=== PATIENT | male | born 1940 | race Caucasian/White ===

== ENCOUNTER → 2016-07-07 | Outpatient (CLI) | payer MEDICARE, OTHER ==
[2014-11-29 14:00] VITALS: BP 111/64
[~2016-07-07] MED LIST: ASPI325T4 PO; ATOR10TA60 PO; CARV3.122 PO; CLOP75TA PO; CONTRAST GIVEN MC PRN; CYAN1TAB28 PO; EZET1TAB4 PO; GLIM2TAB2 PO; IOHEXOL 300 MG/ML 50 ML VIAL. IT ONE; ISOS20TA2 PO; LIDOCAINE 1% Multi-Dose 20 ML VIAL. ID ONE; METF-620 PO; OMEG1CAP6 PO; OMEP20CA9 PO; TAMS0.4C2 PO
--- NOTE | 2016-07-07 13:10 | KCIC ---
CERVICAL MYELOGRAM Indication: Neck pain bilateral upper extremity pain Fluoroscopy time: 1:59 minutes TECHNIQUE: After discussion of the procedure, indications, risks, benefits, and alternatives the patient provided written and oral consent for the procedure. With the patient in a prone position on the fluoroscopy table, the L4-L5 interspace was selected for puncture and the overlying skin was prepped and draped in sterile fashion. Local anesthesia was achieved with approximately 4 mL of buffered 1% lidocaine. Under intermittent fluoroscopic guidance, a 25-gauge Augie needle was advanced into the thecal space with return of clear CSF. Approximately 9 mL of Isovue 300 M contrast was administered into the thecal space under intermittent fluoroscopic observation. The needle was removed and pressure applied until hemostasis was achieved. The patient's head was lowered until contrast was visualized to reach the cervical level. The table was then brought back to baseline. The patient was sent to CT for scanning through the cervical spine. The patient tolerated the procedure well without immediate complication. Post myelographic images demonstrate contrast within the thecal sac. IMPRESSION: Technically successful fluoroscopy guided intrathecal injection of contrast, to be followed by CT myelogram of the cervical spine. Electronically signed by: Liban Reynolds MD (07/07/2016 1:07 PM)
--- NOTE | 2016-07-07 13:19 | KCIC ---
CT CERVICAL MYELOGRAM HISTORY: Neck pain. Multiple falls. TECHNIQUE: Multiple contiguous axial images were obtained through the cervical spine. Coronal and sagittal reformations were created. Images were obtained after intrathecal administration of iodinated contrast. Findings: Alignment and curvature are within normal limits. A supracondylar surgically normal lateral masses of C1. The odontoid is intact. Vertebral body heights are well-maintained. No perching of the facets. At C2-3 there is no spinal stenosis. At C3-4 there is a discussed by complex which narrows the ventral subarachnoid space but does not cause mass effect upon the cord. At C4-C5 there is a discussed by complex which nearly abuts the undersurface of the cord but does not cause mass effect upon it. At C5-C6 there is a discussed by complex which minimally impresses upon the ventral surface of the cord just to the left of midline. At C6-C7 there is no spinal stenosis. At C7-T1 there is no spinal stenosis. Soft tissues of the neck demonstrates bilateral carotid artery calcifications without evidence for high-grade stenosis. IMPRESSION: Mild degenerative disc disease of the cervical spine greatest at C5-C6 where a small disc osteophyte complex causes mild mass effect upon the ventral surface of the cord. Electronically signed by: Liban Reynolds MD (07/07/2016 1:15 PM)
== END | disposition home or self-care (01) ==
LOC: KCIC 10:03
PROVIDERS: ATTEND Family Medicine
DX: M54.12 Radiculopathy, cervical region (principal); M79.602 Pain in left arm; M79.601 Pain in right arm
CPT/HCPCS: 72126; 72240; Q9967

== ENCOUNTER → 2017-07-13 | Day surgery (SDC) | payer MEDICARE, OTHER ==
[~2017-07-13] MED LIST changes: -ASPI325T4 PO; -ATOR10TA60 PO; -CARV3.122 PO; -CLOP75TA PO; -CONTRAST GIVEN MC PRN; -CYAN1TAB28 PO; -EZET1TAB4 PO; -GLIM2TAB2 PO; -IOHEXOL 300 MG/ML 50 ML VIAL. IT ONE; -ISOS20TA2 PO; -LIDOCAINE 1% Multi-Dose 20 ML VIAL. ID ONE; +LIDOCAINE 1% PF 2 ML VIAL. ID; -METF-620 PO; +MORPHINE SULFATE 4 MG/ML DISP.SYRIN. IV; -OMEG1CAP6 PO; -OMEP20CA9 PO; +ONDANSETRON PF 4 MG/2 ML VIAL. IV; +PROCHLORPERAZINE 10 MG/2 ML VIAL. IV; +PROPOFOL 20 ML IV; -TAMS0.4C2 PO; +fentaNYL PF VIAL 100 MCG/2 ML VIAL IV
[2017-07-13] MEDS: IV RINGERS,LACTATED 1000ML 1,000 ML IV (08:16)
== END ==
LOC: ENDOS 07:51
DX: K22.2 Esophageal obstruction (principal); K22.70 Barrett's esophagus without dysplasia; K21.9 Gastro-esophageal reflux disease without esophagitis; I25.2 Old myocardial infarction; I25.10 Atherosclerotic heart disease of native coronary artery without angina pectoris; Z95.5 Presence of coronary angioplasty implant and graft; Z95.1 Presence of aortocoronary bypass graft; E78.00 Pure hypercholesterolemia, unspecified; E78.5 Hyperlipidemia, unspecified; Z98.890 Other specified postprocedural states; Z87.442 Personal history of urinary calculi; M19.90 Unspecified osteoarthritis, unspecified site; E11.9 Type 2 diabetes mellitus without complications; F32.9 Major depressive disorder, single episode, unspecified; Z87.891 Personal history of nicotine dependence; Z82.49 Family history of ischemic heart disease and other diseases of the circulatory system; Z95.0 Presence of cardiac pacemaker
CPT/HCPCS: 43239; 88305; J2704

== ENCOUNTER 2017-11-23 09:28 | Outpatient (CLI) | payer MEDICARE, OTHER ==
[~2017-11-23] VITALS: Ht 175.3 cm; Wt 74.4 kg
[2017-11-23] VITALS (8 sets, daily range): BP systolic 107–150; BP diastolic 61–79
[~2017-11-23 09:28] MED LIST changes: +ASPI325T8 PO; +ATOR10TA60 PO; +CARV3.122 PO; +CLOP75TA PO; +CYAN1TAB28 PO; +EZET1TAB30 PO; +FERR325T72 PO; +FOLI1TAB16 PO; +GLIM2TAB2 PO; +HYDR12.53 PO; +ISOS20TA2 PO; -LIDOCAINE 1% PF 2 ML VIAL. ID; +METF10007 PO; -MORPHINE SULFATE 4 MG/ML DISP.SYRIN. IV; +OMEG1CAP6 PO; +OMEP20CA9 PO; -ONDANSETRON PF 4 MG/2 ML VIAL. IV; -PROCHLORPERAZINE 10 MG/2 ML VIAL. IV; -PROPOFOL 20 ML IV; +TAMS0.4C2 PO; -fentaNYL PF VIAL 100 MCG/2 ML VIAL IV
[2017-11-23 09:53] LABS: HEMATOCRIT 41.6 % (39.0-53.0); HEMOGLOBIN 13.8 g/dL (13.0-17.5); RED BLOOD COUNT 4.8 x10^6/uL (4.30-5.70); RED CELL DISTRIBUTION WIDTH 17.9 % (11.5-14.5)
[2017-11-23] MEDS ORDERED: EMPA10TA PO (10:03)
[2017-11-23 10:09] LABS: PROTHROMBIN TIME PATIENT 12.7 SEC (11.7-14.0)
[2017-11-23 10:11] LABS: CALCIUM 9.8 mg/dL (8.5-10.1); CREATININE 1.2 mg/dL (0.7-1.3); GFR 58.7
[2017-11-23 10:16] LABS: POTASSIUM 5.2 mmol/L (3.5-5.1)
--- NOTE | 2017-11-23 11:03 | PDOC ---
MODERATE SEDATION ASSESSMENT RISKS/ALTERNATIVES Risks/Alternatives Risks and alternatives of this type of sedation and procedure discussed with: RISK/ALTERNATIVES: Patient H & P ON CHART H & P H & P on chart and reviewed for co-morbid conditions and appropriate labs. H&P ON CHART: Yes STATUS PREG STATUS ASSESSED: Yes MEDS/ALLERGIES REVIEWED Meds/Allergies Reviewed Medications and Allergies including time and route of recently administered narcotics and sedatives. MEDS/ALLERGIES REVIEWED: Yes ASA RATING ASA RATING: II AIRWAY ASSESSMENT Airway Assessment Airway patency, oral function limitations, presence of caps, crowns, dentures, partials, and ability to extend neck assessed. AIRWAY ASSESSMENT: Yes MALLAMPATI SCORE MALLAMPATI SCORE: II PRE-SEDATION ASSESSMENT PRE-SEDATION ASSESSMENT: Yes ROBYN FINLEY MD Nov 23, 2017 11:03
[2017-11-23] MEDS ORDERED: IODIXANOL 320 MG/ML 100 ML VIAL. ONE (11:39)
[2017-11-23] MEDS ORDERED: LIDOCAINE 1% PF 30 ML VIAL. ONE (11:39)
[2017-11-23] MEDS ORDERED: fentaNYL PF VIAL 100 MCG/2 ML VIAL ONE (11:50)
[2017-11-23] MEDS ORDERED: MIDAZOLAM HCL/PF 2 MG/2 ML VIAL. ONE (11:50)
[2017-11-23] MEDS ORDERED: LIDOCAINE 1% PF 30 ML VIAL. INJ ONE (12:30)
[2017-11-23] MEDS ORDERED: MIDAZOLAM HCL/PF 2 MG/2 ML VIAL. IV ONE (12:30)
[2017-11-23] MEDS ORDERED: IODIXANOL 320 MG/ML 100 ML VIAL. IART ONE (12:30)
[2017-11-23] MEDS ORDERED: fentaNYL PF VIAL 100 MCG/2 ML VIAL IV ONE (12:30)
--- NOTE | 2017-11-23 13:06 | CARD ---
MR#: [id number] Date of Study: 11/23/2017 Ordering Physician: RAJAN PATEL, Referring Physician: RAJAN PATEL Tech: RT Sima (R) APPROVED REPORT Technologist: Keren Humphrey RT (R) Nurse: Maggie Miranda R.N. Procedure(s) performed: Moderate sedation: 36 minutes HISTORY The patient is a 77 year-old male with a history of : previous AL, coronary artery disease, previous PCI (The PCI date was ), hypertension, previous CABG (The CABG date was ), dyslipidemia. INDICATION The indication(s) include : positive stress test, chest pain. CASE TECHNIQUE The patient was brought electively into the cardiac catheterization lab. A timeout was performed conf irming the patient's name, date of , procedure, and site of procedure. All necessary parties wer e wearing the appropriate personal protective equipment and radiation monitoring devices. After expla ining the risks and benefits of the procedure, informed consent was obtained.(See nursing notes for m edications administered). The right groin was sterilely prepped and draped. The right femoral groin w as infiltrated with 2% Lidocaine subcutaneous anesthesia. During this case, Fluoroscopy and low osmol ar contrast were used for imaging. A sheath was inserted into the right femoral artery without diffic ulty. Coronary angiography was performed using coronary diagnostic catheters. The left coronary syste m was accessed and visualized with a Diagnostic catheter. The right coronary system was accessed and visualized with a Diagnostic catheter. The left ventricle was accessed and visualized with a Diagnost ic catheter. The left internal mammary artery was accessed and visualized with a Diagnostic catheter. The saphenous vein graft was accessed and visualized with a Diagnostic catheter. The saphenous vein graft was accessed and visualized with a Diagnostic catheter. Left ventricular/Aortic Valve gradient assessed on pullback. Left ventriculogram was performed in LANGE projection. Pre-demployment femoral an giogram was performed . Closure device was deployed with a Angioseal without any complications. The p atient tolerated the procedure well and there were no complications associated with the procedure. Coronary Angiography The patient's coronary anatomy is right dominant. The left main coronary artery is a small size vessel with stenosis. There is a 100% stenosis in the m id segment. The left main bifurcates to the left anterior descending and circumflex. The left anterior descending artery is a medium size vessel with severe diffused disease. The LAD is 100% occluded distal to the DEJESUS garft There is a 100% stenosis in the ostial segment. The first diag onal branch is a small size vessel with severe diffused disease. The second diagonal branch is a smal l size vessel with moderate-severe diffused disease. The third diagonal branch is a small size vessel with severe diffused disease. The circumflex artery is a medium size vessel with severe diffused disease. There is a 100% stenosis in the ostial segment. diffuse disease of all the branches distal to the graft anastomosis The first obtuse marginal branch is a medium size vessel with severe diffused disease. The second obtuse margin al branch is a small size vessel with severe diffused disease. The right coronary artery is a large size vessel with severe diffused disease. There is a 100% stenos is in the mid segment. There is 80% stenosis of the RCA ostium The right posterior descending artery is a small size vessel with severe diffused disease. The right posterolateral branch is a small size vessel with severe diffused disease. The left internal mammary artery to the mid left anterior descending artery segment is patent . The s aphenous vein graft to the right posterior descending artery is patent severe diffuse disease of the PDA distal to the graft. The saphenous vein graft to the first obtuse marginal branch segment is rdz nt severe diffuse disease of the OM distal to the graft. Left Ventriculography The left ventricle is dilated in size with decreased contractility. The left ventricular ejection fra ction is estimated to be 30%. The left ventricular end diastolic pressure is 20 mmHg. There was no gr adient across the aortic valve upon pullback. Conclusion This pt has severe diffuse coronary artery disease of the [place] vessels and no significant disease o f the grafts. Pt has an ischemic cardiomyopathy and I would recommend medical treatment. The vessels are not good t argets for redosurgery or attempting intervention with stenting and the grafts are open. Recommendations Medical Therapy Signed by : Rajan Patel MD Electronically Approved : 11/23/2017 13:05:35
== END 2017-11-23 15:37 | disposition home or self-care (01) ==
LOC: CCL 09:28
PROVIDERS: ATTEND Internal Medicine Cardiovascular Disease
DX: I25.10 Atherosclerotic heart disease of native coronary artery without angina pectoris (principal); I25.2 Old myocardial infarction; I10 Essential (primary) hypertension; Z95.1 Presence of aortocoronary bypass graft; I25.5 Ischemic cardiomyopathy; Z88.5 Allergy status to narcotic agent; Z95.0 Presence of cardiac pacemaker; E78.00 Pure hypercholesterolemia, unspecified; Z90.49 Acquired absence of other specified parts of digestive tract; Z79.82 Long term (current) use of aspirin; Z79.899 Other long term (current) drug therapy
CPT/HCPCS: 36415; 80048; 85027; 85610; 93459; 99152; 99153; C1769; C1892; J1644; J2250; J3010; Q9967; C1771; G0269

== ENCOUNTER → 2018-08-31 | Outpatient (CLI) | payer MEDICARE, OTHER ==
[2017-11-23 14:25] VITALS: BP 107/61
[~2018-08-31] MED LIST changes: +CARV3.1210 PO; -CARV3.122 PO; +EMPA10TA PO; -HYDR12.53 PO; +HYDR12.575 PO; +OMEP20CA10 PO; -OMEP20CA9 PO
--- NOTE | 2018-08-31 10:11 | CARD ---
MR#: [id number] Date of Study: 08/31/2018 Ordering Physician: JEMMA KOHLER, Referring Physician: JEMMA KOHLER Tech: Katie Pereira RDCS APPROVED REPORT EXAM: Two-dimensional and M-mode echocardiogram with Doppler and color Doppler. Other Information Quality : AverageHR: 68bpm Rhythm : Pacemaker INDICATION CAD 2D DIMENSIONS RVDd3.2 (2.9-3.5cm)Left Atrium(2D)3.4 (1.6-4.0cm) IVSd1.4 (0.7-1.1cm)Aortic Root(2D)3.3 (2.0-3.7cm) LVDd4.1 (3.9-5.9cm)LVOT Diameter2.3 (1.8-2.4cm) PWd1.0 (0.7-1.1cm)LVDs2.8 (2.5-4.0cm) FS (%) 31.2 %SV43.7 ml LVEF(%)55.0 (>50%) M-Mode DIMENSIONS RVDd2.38 (2.1-3.2cm)IVSd1.16 (0.7-1.1cm) Aortic Root3.60 (2.2-3.7cm)LVDd5.31 (4.0-5.6cm) PWd1.16 (0.7-1.1cm)LVDs3.96 (2.0-3.8cm) LVEF(%)50 (>50%) Aortic Valve AoV Peak Alvarado.88.5cm/sAoV VTI17.0cm AO Peak GR.3.1mmHgLVOT Peak Alvarado.62.6cm/s AO Mean GR.2mmHgAVA (VMAX)2.85cm2 Mitral Valve MV E Xxurmyee69.4cm/sMV DECEL AZGB898an MV A Medrjvak19.2cm/sE/A Ratio0.6 Pulmonary Valve PV Peak Igksirki588.8cm/s Tricuspid Valve TR P. Kcudcini732sk/sRAP WRPEGULA1ppQf TR Peak Gr.94lnPmPZGL98acMc LEFT VENTRICLE The left ventricle is normal size. Proximal septal thickening is noted. Basal inferior wall hypokines is. The Ejection Fraction is 45-50%. Septal motion consistent with conduction abnormality. Transmitra l Doppler flow pattern is Grade I-abnormal relaxation pattern. RIGHT VENTRICLE The right ventricle is normal size. There is normal right ventricular wall thickness. The right ventr icular systolic function is normal. Pacer lead noted in RV/RA. ATRIA The left atrium size is normal. The right atrium size is normal. The interatrial septum is intact wit h no evidence for an atrial septal defect or patent foramen ovale as noted on 2-D or Doppler imaging. AORTIC VALVE The aortic valve is trileaflet. The aortic valve is mildly calcified. Doppler and Color Flow revealed no significant aortic regurgitation. There is no significant aortic valvular stenosis. MITRAL VALVE The mitral valve is normal in structure and function. There is no evidence of mitral valve prolapse. There is no mitral valve stenosis. Doppler and Color-flow revealed trace to mild mitral regurgitation . TRICUSPID VALVE The tricuspid valve is normal in structure and function. Doppler and Color Flow revealed trace tricus pid regurgitation. The PA pressure was estimated at 28 mmHg. There is no tricuspid valve prolapse or vegetation. There is no tricuspid valve stenosis. PULMONIC VALVE The pulmonary valve is normal in structure and function. Doppler and Color Flow revealed trace to mil d pulmonic valvular regurgitation. There is no pulmonic valvular stenosis. GREAT VESSELS The aortic root is normal in size. The ascending aorta is normal in size. The IVC is normal in size a nd collapses >50% with inspiration. PERICARDIAL EFFUSION There is no evidence of significant pericardial effusion. Critical Notification Critical Value: No <Conclusion> Basal inferior wall hypokinesis. The Ejection Fraction is 45-50%. Septal motion consistent with conduction abnormality. Transmitral Doppler flow pattern is Grade I-abnormal relaxation pattern. Pacer lead noted in RV/RA. Trace to mild mitral regurgitation. Trace tricuspid regurgitation. The PA pressure was estimated at 28 mmHg. There is no evidence of significant pericardial effusion. Signed by : Jemma Kohler, Electronically Approved : 08/31/2018 10:10:47
--- NOTE | 2018-09-04 12:09 | RAD ---
MR#: [id number] Date of Study: 08/31/2018 Ordering Physician: JEMMA PARKS, Referring Physician: Juan RUGGIERO: Bette Brush APPROVED REPORT Patient Location: OUT-PATIENT Laterality:Bilateral Indications Bruit Risk Factors Smoking Doppler Spectral Velocity Analysis Right Left pCCA 71/10 cm/spCCA 86/14 cm/s mCCA 86/10 cm/smCCA 77/12 cm/s dCCA 69/13 cm/sdCCA 73/14 cm/s ECA 56/6 cm/sECA 51/6 cm/s pICA 43/10 cm/spICA 33/10 cm/s Omar 44/12 cm/smICA 38/12 cm/s dICA 53/15 cm/sdICA 43/12 cm/s Vert. 26/6 cm/sVert. 27/7 cm/s ICA/CCA 0.62ICA/CCA 0.50 Findings Grayscale images of the bilateral cartilage vessels demonstrate mild diffuse plaque with intimal hype rplasia. No focal high-grade obstruction is noted. Spectral waveforms and color Doppler are within normal limits and overall suggestive of 0 to less thaddeus n 50% stenosis. Images are slightly limited due to a higher carotid bifurcation but otherwise no gross evidence of st enosis. Critical Notification Critical Value: No <Conclusion> No significant carotid occlusive disease. Signed by : Scooby Spangler, Electronically Approved : 09/04/2018 12:08:55
== END | disposition home or self-care (01) ==
LOC: US 07:51
PROVIDERS: ATTEND Internal Medicine Cardiovascular Disease
DX: I08.8 Other rheumatic multiple valve diseases (principal); I65.23 Occlusion and stenosis of bilateral carotid arteries; I25.10 Atherosclerotic heart disease of native coronary artery without angina pectoris; I25.5 Ischemic cardiomyopathy
CPT/HCPCS: 93306; 93880

== ENCOUNTER → 2019-02-08 | Outpatient (CLI) | payer MEDICARE ==
[2017-11-23 14:25] VITALS: BP 107/61
[~2019-02-08] MED LIST changes: -GLIM2TAB2 PO; +GLIM2TAB3 PO; +OMEP-229 PO; -OMEP20CA10 PO
--- NOTE | 2019-02-08 12:17 | PAIN ---
DATE OF SERVICE: 02/08/2019 INITIAL CONSULTATION FOR PAIN CLINIC CHIEF COMPLAINT: Low back and left lower extremity pain. HISTORY OF PRESENT ILLNESS: This is a 78-year-old male who presents with history of pain in the left foot, primarily in the arch of the foot and the lateral toes for about 3 months or more. The patient reports no specific injury or action to start the pain. He has had a history of lumbar disk protrusions in the past with an MRI scan that he has from 2013 showing left lateral recess stenosis at L3-L4, intervertebral disk with left neural foraminal and proximal left extraforaminal small extrusion, L5-S1 shows very shallow left paracentral mostly contained extrusion which is not resulting in significant impingement of descending S1 nerve roots, although disk osteophyte complex near the ventral surfaces without displacement, moderate narrowing distally of the right neural foramen and mild narrowing of the left neural foramen, and again that was 2013 MRI scan. The patient has had no further lumbar studies since that time. He did have an MRI scan of his left foot showing no definite findings to exclude the patient's lateral pain. No evidence of peroneal tendon tear, mild edema. The patient reports the pain is worse with standing, walking, changing positions, can act up when he is sitting, does not awaken him from sleep at night, but much worse with activity. The patient reports it does affect his ability to walk significantly, does not affect his bowel or bladder control. He has had physical therapy in the past, but nothing recently for this current issue. The patient does not take any specific pain medications for it except for jyac-hky-nkwrimu Tylenol. The patient describes the pain as intermittent in intensity, was stinging, sharp, can be burning as though someone was holding torch to the arch of his foot and the lateral toes. PAST MEDICAL HISTORY: Significant for type 2 diabetes, hyperlipidemia, coronary artery disease with pacemaker placement, arthritis, vertigo, history of polio in the past. PREVIOUS SURGERY: Includes coronary artery bypass x 9 in 1997 and 1983; appendectomy; right foot fracture. CURRENT MEDICATIONS: Include Jardiance, metformin, carvedilol, isosorbide, clopidogrel, atorvastatin, daily baby aspirin, fish oil, glimepiride, tamsulosin, omeprazole, iron, folic acid and hydrochlorothiazide. ALLERGIES: THE PATIENT IS ALLERGIC TO CODEINE. FAMILY HISTORY: Significant for diabetes and heart disease. SOCIAL HISTORY: The patient drinks alcohol maybe once a year, does not smoke, does not use any illegal, illicit or recreational drugs. Quit smoking about 40 years ago. He is single, lives locally in [place], [place] and is currently retired. REVIEW OF SYSTEMS: The patient's review of systems is positive for those items mentioned in history of present illness. All systems reviewed and otherwise negative. It is complete, full and well documented on the patient's chart. PHYSICAL EXAMINATION: VITAL SIGNS: The patient's blood pressure 135/78, pulse 65, respirations 16, temperature 98.4 degrees Fahrenheit, height is 5 feet 10 inches, weight is 169 pounds. GENERAL: The patient is awake, alert, oriented, appropriate, very pleasant demeanor. HEENT: Shows normocephalic, atraumatic. The patient wears eye glasses. Extraocular movements are intact and symmetrical. Oral cavity: Mucous membranes moist and pink. Dentition is intact. NECK: Shows anterior throat supple without palpable lymphadenopathy noted. Swallow reflex symmetrical. CHEST: Shows normal on inspection. Breath sounds are clear bilaterally. Easily palpable pacemaker is noted in the left infraclavicular region. HEART: Shows S1, S2 clear. No murmurs auscultated. ABDOMEN: Soft, nontender, nondistended. No palpable organomegaly is noted. No rebound or guarding demonstrated. BACK: Shows spine grossly in the midline. Normal appearing cervical lordotic curvature, thoracic kyphotic curvature and lumbar lordotic curvature. Lumbar paraspinous muscle shows symmetrical on inspection, with palpation shows some moderate tenderness diffusely bilaterally and diffusely without radiation throughout the upper, middle and lower distribution of paraspinous muscles. The patient has good rotational motion of lumbar spine, both laterally greater than 10 degrees right and left as well as extension greater than 10 degrees, forward flexion 45 degrees without significant exacerbation of pain. No tenderness over the spinous processes, sacrum or sacroiliac regions. EXTREMITIES: Lower extremities show deep tendon reflexes 2+ in the patellar, 1+ tendo-calcaneus tendons are equal. Motor exam is strong with 5/5 dorsiflexion, extension, quadriceps and hamstring flexion and symmetrical. Peripheral pulses are 1+ posterior tibia. No peripheral edema is noted bilaterally. The patient's skin shows warm and dry, good turgor. No edema. No sores, rashes or bruising throughout. The patient is able to stand, stand on his toes without difficulty or loss of balance, walks with a normal appearing gait, does not appear to favor the right or left lower extremities with short distance in the office, not using any assistive devices to ambulate today as well. IMPRESSION: 1. This is a 78-year-old male with approximate 3-month plus history of left lower extremity pain. 2. MRI scan of lumbar spine from 2012 is noted. 3. Diabetes. 4. Arthritis. 5. Coronary artery disease with pacemaker. PLAN: Options were discussed with the patient including conservative medical managements, physical therapies and interventional techniques. He would like to pursue interventional techniques as he has done well with these with some back pain in the past and we are hoping that this may be radicular pain into the left foot as Podiatry workup has been completely negative. We will check with the patient's chip unloader regarding holding Plavix for 7 days prior to interventional spine procedure. If deemed safe and appropriate, we will have the patient return after 7 days holding Plavix and plan on lumbar epidural steroid injection at L5-S1 level on the left at that time, and in the meantime, the patient will continue with activity as tolerated, stretching and strengthening exercises, we discussed with the back as well as leg and foot. We will follow up as scheduled. WILFREDO GOMEZ MD DR: DAXA/tracy JOB#: [id number] / [id number] Ayaz Lance MD
== END | disposition home or self-care (01) ==
LOC: PNCL 09:48
PROVIDERS: ATTEND Anesthesiology
DX: M54.17 Radiculopathy, lumbosacral region (principal); E11.9 Type 2 diabetes mellitus without complications; M19.90 Unspecified osteoarthritis, unspecified site; I25.10 Atherosclerotic heart disease of native coronary artery without angina pectoris; Z95.0 Presence of cardiac pacemaker
CPT/HCPCS: G0463

== ENCOUNTER → 2019-02-21 | Outpatient (CLI) | payer MEDICARE ==
[2017-11-23 14:25] VITALS: BP 107/61
[~2019-02-21] MED LIST changes: -GLIM2TAB3 PO; +GLIM2TAB7 PO; +IOHEXOL 180 MG/ML 10 ML VIAL. ONE; -OMEP-229 PO; +OMEP20CA16 PO; +methylPREDNISolone ACETATE 40 MG/ML VIAL. ONE; +methylPREDNISolone ACETATE 80 MG/ML VIAL. ONE
--- NOTE | 2019-02-21 09:39 | PAIN ---
DATE OF SERVICE: 02/21/2019 PROGRESS NOTE FOR PAIN CLINIC DIAGNOSES: Lumbar radiculopathy with lumbar degenerative disk disease. HISTORY OF PRESENT ILLNESS: The patient is a 78-year-old male who returns for followup status post initial evaluation and holding his Plavix. He has been cleared by his portainer operator to be off and is now being off for 7 days and returns reporting still significant pain in the left foot, some on the low back as well, but mostly in the left foot and sole of the foot. The patient reports it is a 7 on a scale of 10 at its worst over the past week, 4 on average, 4 at its least and is a 4 today. The patient reports it is burning, on and off in intensity, worse with walking, standing, changing positions. The patient reports it does not awaken her from sleep, however. The patient reports no new motor or sensory deficits, no new bowel or bladder incontinence or other complaints. PHYSICAL EXAMINATION: VITAL SIGNS: The patient's blood pressure 117/68, pulse 65, respirations 16, temperature 98.6 degrees Fahrenheit, and weight is 170 pounds. GENERAL: The patient is awake, alert, oriented, appropriate, very pleasant demeanor. HEENT: Shows normocephalic, atraumatic. Extraocular movements are intact and symmetrical. Oral cavity: Mucous membranes moist and pink. Dentition is intact. NECK: Shows anterior throat supple without palpable lymphadenopathy noted. Swallow reflex symmetrical. CHEST: Shows normal on inspection. Breath sounds are clear bilaterally. HEART: Shows S1, S2 clear. ABDOMEN: Soft, nontender, nondistended. BACK: Shows spine grossly in the midline, slight exaggerated thoracic kyphosis, some minor flattening of lumbar lordotic curvature. Lumbar paraspinous muscle shows symmetrical with inspection. On palpation, there is some very mild tenderness in the low lumbar distribution bilaterally, but only diffusely without radiation and without asymmetry. The patient shows good rotational motion of lumbar spine, both laterally as well as extension and flexion without difficulty. No tenderness over the sacrum and sacroiliac regions or the spinous processes. EXTREMITIES: Lower extremities show deep tendon reflexes at 2+ in the patellar, 1+ tendo-calcaneus tendons. Motor exam is strong with 5/5 dorsiflexion, extension, quadriceps and hamstring flexion symmetrical. Peripheral pulses are 1+ posterior tibial bilaterally without edema. Options were discussed with the patient. The patient's old chart was reviewed as his current medication regimen updated. Current review of systems updated today as well. We will proceed with lumbar epidural steroid injection today with fluoroscopic guidance. Risks were again discussed including, but not limited to bleeding, infection, possibility of epidural hematoma, subsequent neurological compromise, dural puncture, headaches, spinal cord and/or nerve damage, side effects of steroid medication and poor results regarding pain control. The patient understands and wished to proceed. The patient will return to clinic in approximately 2 weeks for followup. She was counseled on return appointment, activity level and side effects to be aware of. DIAGNOSIS: Lumbar radiculopathy with lumbar degenerative disk disease. PROCEDURE: Lumbar epidural steroid injection, translaminar approach at L5-S1 level using C-arm fluoroscopic guidance under sterile prep and drape using local anesthetic. MEDICATION INJECTED: A total of 120 mg Depo-Medrol plus 10 mL of preservative-free normal saline and 2 mL of contrast. CONDITION AT DISCHARGE: Stable. The patient tolerated the procedure well, had no complications. WILFREDO GOMEZ MD DR: DAXA/tracy JOB#: [id number] / [id number]
== END ==
LOC: PNCL 07:57
PROVIDERS: ATTEND Anesthesiology
DX: M51.16 Intervertebral disc disorders with radiculopathy, lumbar region (principal)
CPT/HCPCS: 62323; J1030; J1040; Q9965

== ENCOUNTER → 2019-03-07 | Outpatient (CLI) | payer MEDICARE ==
[2017-11-23 14:25] VITALS: BP 107/61
[~2019-03-07] MED LIST changes: +CEPH-264 PO; -IOHEXOL 180 MG/ML 10 ML VIAL. ONE; -methylPREDNISolone ACETATE 40 MG/ML VIAL. ONE; -methylPREDNISolone ACETATE 80 MG/ML VIAL. ONE
--- NOTE | 2019-03-07 10:24 | PAIN ---
DATE OF SERVICE: 03/07/2019 PROGRESS NOTE FOR PAIN CLINIC DIAGNOSES: Lumbar radiculopathy with lumbar degenerative disk disease. HISTORY OF PRESENT ILLNESS: The patient is a 78-year-old male who returns for followup status post lumbar epidural steroid injection x 1. The patient reports about 75% improvement in his left foot, which his main pain complaint was. Prior to the injection, the patient reports it was a 4 on a scale of 10, now it worst over the past week, 4 on average, 0 at its least and is 0 today. The patient reports it is only bothering him 2-3 times a day on average and prior to that it was several times an hour. The patient reports he has been increasing his activity with greater ease and comfort, doing greater distance walking, household activities with greater ease, traveling with greater ease as well. Reports he still has some significant pain in the left foot, but is only very infrequent. The patient reports no new motor or sensory deficits, no new bowel or bladder incontinence or other complaints. PHYSICAL EXAMINATION: VITAL SIGNS: The patient's blood pressure is 104/59, pulse 77, respirations are 18, temperature 97.9 degrees Fahrenheit, weight is 166 pounds. GENERAL: The patient is awake, alert, oriented, appropriate, very pleasant demeanor. HEENT: Shows normocephalic, atraumatic. Extraocular movements are intact and symmetrical. Oral cavity: Mucous membranes moist and pink. Dentition is intact. NECK: Shows anterior throat supple. CHEST: Shows normal on inspection. Breath sounds are clear. HEART: Shows S1, S2 clear. ABDOMEN: Soft, nontender, nondistended. BACK: Shows spine grossly in the midline. Lumbar paraspinous muscle shows symmetrical on inspection, only very mild tenderness in lower lumbar distribution, but symmetrical. The patient has full rotational motion of lumbar spine laterally as well as extension and flexion. EXTREMITIES: Lower extremities show deep tendon reflexes 2+ in the patellar, 1+ tendo-calcaneus tendons. Motor exam remains strong with 5/5 dorsiflexion, extension, quadriceps and hamstring flexion and symmetrical. Peripheral pulses are 1+ posterior tibia. No peripheral edema is noted bilaterally. Options were discussed with the patient. The patient's old chart was reviewed as his current medication regimen updated. Current review of systems updated today as well. We will hold on any further injections at this time, as well as the patient currently taking Plavix. The patient was encouraged to increase activity as tolerated, maintain stretching and strength exercises and walking daily. If the pain begins to return to a significant extent, the patient will contact the office. We will have him hold his Plavix again for 7 days prior to potential next lumbar epidural steroid injection procedure. WILFREDO GOMEZ MD DR: DAXA/tracy JOB#: [id number] / [id number]
== END | disposition home or self-care (01) ==
LOC: PNCL 08:28
PROVIDERS: ATTEND Anesthesiology
DX: M51.16 Intervertebral disc disorders with radiculopathy, lumbar region (principal)
CPT/HCPCS: G0463

== ENCOUNTER 2019-03-12 15:53 | Emergency (ER) | payer MEDICARE ==
[~2019-03-12] VITALS: Ht 177.8 cm; Wt 75.0 kg
[~2019-03-12 15:53] MED LIST changes: -CEPH-264 PO
[2019-03-12 16:30] VITALS: BP 150/81
--- NOTE | 2019-03-12 16:42 | PHYS DOC ---
Past Medical History Past Medical History: CAD, Hypertension Past Surgical History: Coronary Bypass Surgery Alcohol Use: Rarely Drug Use: None Adult General Chief Complaint Chief Complaint: LACERATION/AVULSION HPI HPI Patient is a 78 year old male who presents with was at home using a table saw today when he cut his left thumb. Patient states his tetanus was less than 5 years ago. He went to urgent care and urgent care sent him here with a tourniquet attached to his thumb. Review of Systems Review of Systems Integument: Laceration, left thumb. Denies rash or skin lesions [] All other systems were reviewed and found to be within normal limits, except as documented in this note. Current Medications Current Medications Current Medications Medications (Trade) Dose Ordered Sig/Amanda Start Time Stop Time Status Last Admin Dose Admin Lidocaine HCl (Lidocaine 1% 20ml Vial) 20 ml 1X ONCE 03/12/19 18:00 03/12/19 18:01 DC 03/12/19 18:00 20 ML Allergies Allergies Allergies Coded Allergies Type Severity Reaction Last Updated Verified codeine Adverse Reaction Intermediate diaphragm spasms in childhood 07/13/17 Yes Physical Exam Physical Exam Constitutional: Well developed, well nourished, no acute distress, non-toxic appearance. [] HENT: Normocephalic, atraumatic, bilateral external ears normal, oropharynx moist, no oral exudates, nose normal. [] Eyes: PERRLA, EOMI, conjunctiva normal, no discharge. [] Neck: Normal range of motion, no tenderness, supple, no stridor. [] Cardiovascular:Heart rate regular rhythm, no murmur [] Lungs & Thorax: Bilateral breath sounds clear to auscultation [] Abdomen: Bowel sounds normal, soft, no tenderness, no masses, no pulsatile masses. [] Skin: Laceration left thumb. Warm, dry, no erythema, no rash. [] Back: No tenderness, no CVA tenderness. [] Extremities: No tenderness, no cyanosis, no clubbing, ROM intact, no edema. [] Neurologic: Alert and oriented X 3, normal motor function, normal sensory function, no focal deficits noted. [] Psychologic: Affect normal, judgement normal, mood normal. [] Current Patient Data Vital Signs Vital Signs Date Time Temp Pulse Resp B/P (MAP) Pulse Ox O2 Delivery O2 Flow Rate FiO2 03/12/19 16:30 99.2 98 20 150/81 (104) 96 99.2 Lab Values Laboratory Tests Test 03/12/19 18:00 Glucose (Fingerstick) 218 mg/dL (70-99) H EKG EKG [] Radiology/Procedures Radiology/Procedures [] Impressions: [facility] [address] [place] [address] IMAGING REPORT Signed PATIENT: WOJCIECH MCKINNON ACCOUNT: [id number] : 1940 LOCATION: ER AGE: 78 SEX: M EXAM STATUS: REG ER ORD. PHYSICIAN: YEVGENIY RICE APRN REASON: table saw to the thumb of left hand, laceration PROCEDURE: HAND LEFT 3V Examination: 3 views of the left hand HISTORY: History of table saw laceration to the thumb COMPARISON: None available FINDINGS: The alignment of the metacarpophalangeal joints, interphalangeal joints grossly appears unremarkable. Soft tissue laceration identified in the thumb. No obvious acute fracture identified in the thumb. IMPRESSION: 1. Soft tissue laceration in the thumb. Electronically signed by: Jose Hooper MD (03/12/2019 5:11 PM) [facility] DICTATED and SIGNED BY: JOSE HOOPER MD DATE: 03/12/191710 Course & Med Decision Making Course & Med Decision Making When unwrapping the thumb there is a 3 inch laceration extending from the pad of thumb diagonally down the lateral thumb. It is very deep but I cannot see any bone. Tourniquet is taken off due to tip left thumb being a pale blue color and cold. Radial pulses strong and present. Patient can bend the thumb and move his thumb. There is no laxity in any of the joints. Cap refill is less than 3 seconds. No tendons are seen with examination. The part of the laceration on the pad of the thumb is sutureed together. The skin is Shreded in some areas and missing in others. THe rest of the wound on the lateral part of the thumb there is no laceration only the superficial skin has been scrapped off. I will give this patient a antibiotic. Antibiotic ointment is also applied and a Telfa is also applied. Patient is notified to follow-up with his doctor he can return here. He is notified that the sutures need to be removed in 10 days. He is educated to keep it covered and clean and watch for signs of infection. Laceration Repair by me: Anesthesia: 1% lidocaine locally Location: Left thumb Tendon/Joint/Nerves: No injury Foreign body: None detected after copious irrigation with saline and chlorhexidine and exploration Technique: 7 Simple Interrupted Sutures Complexity: No subcutaneous sutures/mucosal repair/edge excision Post Closure Length: 3 inches Patient's bleeding was easily controlled in the department and there is no indication of anemia. No evidence of compartment syndrome, neurologic injury, vascular injury, open joint, tendon laceration, or foreign body. Patient is appropriate for outpatient follow up. 48 hour wound check. Scar minimization instructions given. Dragon Disclaimer Dragon Disclaimer This electronic medical record was generated, in whole or in part, using a voice recognition dictation system. Departure Departure Impression: Primary Impression: Laceration Disposition: 01 HOME, SELF-CARE Condition: STABLE Referrals: Ayaz ALMANZAR MD (PCP) Patient Instructions: Fingertip Laceration, Laceration Care, Adult Additional Instructions: Return to the ED or her primary care doctor in 10 days to have sutures removed. Keep the area clean and covered. Take antibiotic as prescribed. Scripts Cephalexin (KEFLEX) 500 Mg Capsule 500 MG PO QID for 7 Days, #28 CAP Prov: YEVGENIY RICE APRN 03/12/19 YEVGENIY RICE APRN Mar 12, 2019 16:41
--- NOTE | 2019-03-12 17:14 | RAD ---
Examination: 3 views of the left hand HISTORY: History of table saw laceration to the thumb COMPARISON: None available FINDINGS: The alignment of the metacarpophalangeal joints, interphalangeal joints grossly appears unremarkable. Soft tissue laceration identified in the thumb. No obvious acute fracture identified in the thumb. IMPRESSION: 1. Soft tissue laceration in the thumb. Electronically signed by: Jose Hooper MD (03/12/2019 5:11 PM) [facility]
[2019-03-12] MEDS ORDERED: LIDOCAINE 1% Multi-Dose 20 ML VIAL. INJ ONE (18:00)
[2019-03-12] MEDS ORDERED: NEOMY/BACITR/POLYMYXIN OINT PACKET. TP ONE ×2 (19:33→19:45)
[2019-03-12] MEDS ORDERED: CEPH-264 PO (19:38)
== END 2019-03-12 19:54 | disposition home or self-care (01) ==
LOC: ER 15:53
DX: S61.012A Laceration without foreign body of left thumb without damage to nail, initial encounter (principal); I25.10 Atherosclerotic heart disease of native coronary artery without angina pectoris; Z95.1 Presence of aortocoronary bypass graft; I10 Essential (primary) hypertension; Z88.5 Allergy status to narcotic agent; W31.2XXA Contact with powered woodworking and forming machines, initial encounter; Y93.89 Activity, other specified; Y92.098 Other place in other non-institutional residence as the place of occurrence of the external cause; Y99.8 Other external cause status
CPT/HCPCS: 12004; 73130; 82962; 99283; 99285

== ENCOUNTER 2019-07-27 16:15 | Emergency (ER) | payer MEDICARE ==
[~2019-07-27] VITALS: Ht 177.8 cm; Wt 73.1 kg
[~2019-07-27 16:15] MED LIST changes: +CEPH-264 PO
[2019-07-27 16:51] VITALS: BP 150/90
[2019-07-27] MEDS ORDERED: LIDOCAINE 1% PF 2 ML VIAL. INJ ONE (17:00)
--- NOTE | 2019-07-27 18:21 | RAD ---
Exam: Left finger 3 views INDICATION: Left thumb pain after hit with a hammer TECHNIQUE: Frontal view of the hand with oblique and lateral views of the left thumb Comparisons: None FINDINGS: Mild soft tissue swelling surrounding the thumb. Bone mineralization is normal. No acute or healed fractures. Joint spaces are well-maintained. IMPRESSION: Soft tissue swelling, without underlying osseous abnormality identified. Electronically signed by: Ja Sanchez MD (07/27/2019 6:18 PM) [id number]
[2019-07-27] MEDS ORDERED: CEPH-264 PO (19:00)
--- NOTE | 2019-07-27 19:02 | PHYS DOC ---
Past Medical History Past Medical History: CAD, CHF, Diabetes-Type II, Hypertension, [place] Past Surgical History: Appendectomy, Coronary Bypass Surgery, Pacemaker Smoking Status: Former Smoker Alcohol Use: None Drug Use: None General Adult EDM: Chief Complaint: LACERATION/AVULSION HPI: HPI: Patient is a 79 year old male, accompanied by his , who presents the emergency department from urgent care with complaints of a laceration and pain to his left thumb after he accidentally struck his left thumb with a hammer today. Patient states his last tetanus shot was less than 5 years ago. He denies any numbness or tingling of the affected digit. He states that the pain increases with range of motion. Currently rates the pain 9 out of 10 on pain scale, he denies any alleviating factors. The patient states that the pain is worse when he moves his finger or pressure is applied to it. Patient denies any use of blood thinners. He reports that he cut the same finger with a table saw a few months ago. Review of Systems: Review of Systems: Constitutional: Denies fever or chills. [] Eyes: Denies change in visual acuity. [] HENT: Denies nasal congestion or sore throat. [] Respiratory: Denies cough or shortness of breath. [] Cardiovascular: Denies chest pain or edema. [] GI: Denies abdominal pain, nausea, vomiting, or diarrhea. [] Musculoskeletal: See HPI Integument: See HPI Neurologic: Denies headache, focal weakness or sensory changes. [] Endocrine: Denies polyuria or polydipsia. [] Lymphatic: Denies swollen glands. [] Psychiatric: Denies depression or anxiety. [] Heart Score: Risk Factors: Risk Factors: DM, Current or recent (<one month) smoker, HTN, HLP, family history of CAD, obesity. Risk Scores: Score 0 - 3: 2.5% MACE over next 6 weeks - Discharge Home Score 4 - 6: 20.3% MACE over next 6 weeks - Admit for Clinical Observation Score 7 - 10: 72.7% MACE over next 6 weeks - Early Invasive Strategies Current Medications: Current Medications Medications (Trade) Dose Ordered Sig/Amanda Start Time Stop Time Status Last Admin Dose Admin Lidocaine HCl (Xylocaine-Mpf 1% 2ml Vial) 4 ml 1X ONCE 07/27/19 17:00 07/27/19 17:05 DC 07/27/19 18:19 4 ML Allergies: Allergies: Allergies Coded Allergies Type Severity Reaction Last Updated Verified codeine Adverse Reaction Intermediate diaphragm spasms in childhood 07/13/17 Yes Physical Exam: PE: Constitutional: Well developed, well nourished, no acute distress, non-toxic appearance. [] HENT: Normocephalic, atraumatic, bilateral external ears normal, nose normal. [] Eyes: PERRLA, EOMI, conjunctiva normal, no discharge. [] Neck: Normal range of motion, no stridor. [] Cardiovascular:Heart rate regular rhythm Lungs & Thorax: Respirations even and unlabored, no retractions, no respiratory distress Skin: Warm, dry, no erythema, no rash; 2 cm laceration to the dorsal surface of the left thumb over the DIP without any active bleeding or visible foreign body; 4 cm V-shaped laceration to the palmar surface of the left thumb at the DIP no active bleeding or visible foreign body [] Extremities: Left thumb: tender to palpation at the DIP, no crepitus, no obvious deformity, full range of motion no cyanosis, cap refill less than 2 seconds, no edema. [] Neurologic: Alert and oriented X 3, no focal deficits noted. [] Psychologic: Affect normal, judgement normal, mood normal. [] Current Patient Data: Vital Signs: Vital Signs Date Time Temp Pulse Resp B/P (MAP) Pulse Ox O2 Delivery O2 Flow Rate FiO2 07/27/19 16:51 98.3 83 20 150/90 (110) 96 Room Air 98.3 EKG: EKG: [] Radiology/Procedures: Radiology/Procedures: PROCEDURE: FINGER(S) LEFT Exam: Left finger 3 views INDICATION: Left thumb pain after hit with a hammer TECHNIQUE: Frontal view of the hand with oblique and lateral views of the left thumb Comparisons: None FINDINGS: Mild soft tissue swelling surrounding the thumb. Bone mineralization is normal. No acute or healed fractures. Joint spaces are well-maintained. IMPRESSION: Soft tissue swelling, without underlying osseous abnormality identified.[] Laceration Repair by me: Anesthesia: 1% lidocaine locally Location: palmar L thumb Tendon/Joint/Nerves: No injury Foreign body: None detected after copious irrigation and exploration Technique: 7 Simple Interrupted Sutures with 5-0 Ethilon Complexity: No subcutaneous sutures/mucosal repair/edge excision Post Closure Length: 4 cm Anesthesia: 1% lidocaine locally Location: doral left thumb Tendon/Joint/Nerves: No injury Foreign body: None detected after copious irrigation and exploration Technique: 4 Simple Interrupted Sutures with 5-0 ethilon Complexity: No subcutaneous sutures/mucosal repair/edge excision Post Closure Length: 2 cm Patient's bleeding was easily controlled in the department and there is no indication of anemia. No evidence of compartment syndrome, neurologic injury, vascular injury, open joint, tendon laceration, or foreign body. Patient is appropriate for outpatient follow up. Course & Med Decision Making: Course & Med Decision Making Pertinent Labs and Imaging studies reviewed. (See chart for details) [] Dragon Disclaimer: Dragon Disclaimer: This electronic medical record was generated, in whole or in part, using a voice recognition dictation system. Departure Departure Impression: Primary Impression: Crushing injury of left thumb, initial encounter Additional Impression: Laceration of thumb without foreign body without damage to nail Qualified Codes: S61.012A - Laceration without foreign body of left thumb without damage to nail, initial encounter Disposition: 01 HOME, SELF-CARE Condition: STABLE Referrals: Ayaz ALMANZAR MD (PCP) Patient Instructions: Laceration Care, Adult, [id number] Additional Instructions: Fill the prescription and take as directed. Keep the area clean and dry. You may take Tylenol or ibuprofen as needed for pain. Keep the dressing that was placed today on for 24 hours then change the dressing twice a day and apply antibiotic ointment to the area. Wear the splint that was applied until the sutures have been removed. Follow-up with your primary care doctor, or return to the emergency room in 10-14 days to have the sutures removed, sooner if you develop signs of infection including: redness, warmth, drainage, or a fever. Scripts Cephalexin (KEFLEX) 500 Mg Capsule 500 MG PO TID for 7 Days, #21 CAP 0 Refills Prov: RIVKA GUADARRAMA APRN 07/27/19 Justicifation of Admission Dx: Justifications for Admission: Justification of Admission Dx: N/A Splinting Splinting : Location: L thumb Pre-Made Type: metal (aluminum finger splint) Pre-Proc Neuro Vasc Exam: normal Post-Proc Neuro Vasc Exam: normal, unchanged from pre-exam RIVKA GUADARRAMA [employer]NAGER [employer] Jul 27, 2019 19:02
[2019-07-27] MEDS ORDERED: NEOMY/BACITR/POLYMYXIN OINT PACKET. TP ONE (19:30)
== END 2019-07-27 19:43 | disposition home or self-care (01) ==
LOC: ER 16:15
DX: S61.012A Laceration without foreign body of left thumb without damage to nail, initial encounter (principal); S67.02XA Crushing injury of left thumb, initial encounter; I11.0 Hypertensive heart disease with heart failure; I50.9 Heart failure, unspecified; E11.9 Type 2 diabetes mellitus without complications; I25.2 Old myocardial infarction; Z90.89 Acquired absence of other organs; Z87.891 Personal history of nicotine dependence; Z95.0 Presence of cardiac pacemaker; Z88.5 Allergy status to narcotic agent; W23.0XXA Caught, crushed, jammed, or pinched between moving objects, initial encounter; Y93.89 Activity, other specified; Y92.89 Other specified places as the place of occurrence of the external cause; Y99.8 Other external cause status
CPT/HCPCS: 12002; 73140; 99283; J3490

== ENCOUNTER → 2019-10-30 | Outpatient (CLI) | payer MEDICARE ==
[2019-03-12 16:30] VITALS: BP_SYST 150
[2019-07-27 16:51] VITALS: BP_DIAS 90
[~2019-10-30] MED LIST changes: +REGADENOSON 0.4 MG/5 ML DISP.SYRIN. IV ONE
--- NOTE | 2019-10-30 12:49 | CARD ---
MR#: [id number] Date of Study: 10/30/2019 Ordering Physician: JEMMA PARKS, Referring Physician: JEMMA PARKS Tech: Alyson Humphrey RDCS APPROVED REPORT EXAM: Two-dimensional and M-mode echocardiogram with Doppler and color Doppler. Other Information Quality : Good INDICATION Cardiac Disease: CAD Hx: CABG x's 2, Pacemaker 2D DIMENSIONS RVDd2.7 (2.9-3.5cm)Left Atrium(2D)3.5 (1.6-4.0cm) IVSd1.1 (0.7-1.1cm)Aortic Root(2D)3.4 (2.0-3.7cm) LVDd4.4 (3.9-5.9cm)LVOT Diameter2.0 (1.8-2.4cm) PWd0.9 (0.7-1.1cm)LVDs3.6 (2.5-4.0cm) FS (%) 18.1 %SV32.8 ml LVEF(%)37.7 (>50%) Aortic Valve AoV Peak Alvarado.90.8cm/sAoV VTI15.2cm AO Peak GR.3.3mmHgLVOT Peak Alvarado.93.3cm/s AO Mean GR.2mmHgAVA (VMAX)3.38cm2 ALBERTO (VTI)3.70cm2 Mitral Valve MV E Fugzvwct00.7cm/sMV DECEL GURB222kg MV A Nqlhicbh60.1cm/sE/A Ratio0.6 Tricuspid Valve TR P. Zcdrbqzw918ri/sRAP DVBMDWCT5ipPd TR Peak Gr.59ubIxGDIH51hmPz Pulmonary Vein S1 Oojsttkt93.2cm/sD2 Qzyywojx97.2cm/s LEFT VENTRICLE The left ventricle is normal size. There is normal left ventricular wall thickness. The Ejection Frac tion is 45%. Abnormal septal motion consistent with post-operative state. Transmitral Doppler flow pa ttern is Grade I-abnormal relaxation pattern. RIGHT VENTRICLE The right ventricle is normal size. The right ventricular systolic function is normal. ATRIA The left atrium size is normal. The right atrium size is normal. The interatrial septum is intact wit h no evidence for an atrial septal defect or patent foramen ovale as noted on 2-D or Doppler imaging. AORTIC VALVE The aortic valve is mildly thickened but opens well. Doppler and Color Flow revealed no significant a ortic regurgitation. There is no significant aortic valvular stenosis. MITRAL VALVE The mitral valve is calcified but opens well. Mitral annular calcification is mild. There is no evide nce of mitral valve prolapse. There is no mitral valve stenosis. Doppler and Color-flow revealed trac e mitral regurgitation. TRICUSPID VALVE The tricuspid valve is normal in structure and function. Doppler and Color Flow revealed trace to mil d tricuspid regurgitation. The PA pressure was estimated at 31 mmHg. There is no tricuspid valve sten osis. PULMONIC VALVE The pulmonary valve is normal in structure and function. Doppler and Color Flow revealed mild pulmoni c valvular regurgitation. There is no pulmonic valvular stenosis. GREAT VESSELS The aortic root is normal in size. The ascending aorta is mildly dilated at 3.6 cm. The IVC is normal in size and collapses >50% with inspiration. PERICARDIAL EFFUSION There is no evidence of significant pericardial effusion. Critical Notification Critical Value: No <Conclusion> Abnormal septal motion consistent with post-operative state. The Ejection Fraction is 45%. Transmitral Doppler flow pattern is Grade I-abnormal relaxation pattern. Pacer wire noted in RA/RV. Trace mitral regurgitation. Trace to mild tricuspid regurgitation. The PA pressure was estimated at 31 mmHg. There is no evidence of significant pericardial effusion. Signed by : Jemma Parks, Electronically Approved : 10/30/2019 12:48:57
--- NOTE | 2019-10-30 13:30 | RAD ---
MR#: [id number] Date of Study: 10/30/2019 Ordering Physician: JEMMA KOHLER, Referring Physician: PAO RUGGIERO Tech: JULIÁN Aquino ARRT (R) (N) APPROVED REPORT Test Type: Pharmacological Test Indications: CAD, chest pain Cardiac History: HTN, PPM, CABG, , See [facility] - Financial Reconciliation EMR Medications: SEE EMR Medical History: SEE EMR Resting ECG: AV PACED w/ BBB Resting Heart Rate: 61 bpm Resting Blood Pressure: 97/52mmHg Pretest Chest Pain: No chest pain Nurse/Tech Notes Regular rate, pacer spikes noted, lungs CTA, denied SOA or CP. Consent: The procedure was explained to the patient in lay terms. Informed consent was witnessed. Shin eout was entered into [employer]. History and Stress Test performed by RT Del (R) (N) Pharm. Details Pharmacologic stress testing was performed using 0.4mg per 5ml of regadenoson given intravenously ove r 7-10 seconds. Stress Symptoms Pt's only complaints were a slight lump in his throat and a little SOA, symptoms subsided within a co uple minutes. VSS. Denied CP during testing. Pt tolerated well otherwise. POST EXERCISE Reason for Termination: Infusion complete Max HR: 90 bpm Max Blood Pressure: 107/56mmHg Blood Pressure response to exercise: Normal blood pressure response during stress. Heart Rate response to exercise: Normal HR response during stress. Chest Pain: No. Arrhythmia: . AV paced w/BBB, no significant changes from baseline. ST Change: No. INTERPRETATION Stress EKG Conclusion: Baseline EKG showed AV sequential paced rhythm. Nondiagnostic changes at peak stress. No arrhythmias Imaging Protocol IMAGE PROTOCOL: Rest Tc-99m/stress Tc-99m 1 day Rest: Stress: Viability: Radiopharm.Tc99m XhgpkvfpeWs87v Sestamibi Lmwk02vSj 32mCi Img Date 10/30/2019 10/30/2019 Inj-Img Kpzm38tyl. 60min. Rest Admin Site:IV - Right ForearmAdministrator:JULIÁN Aquino ARRT (R)(N) Stress Admin Site: IV - Right ForearmAdministrator: RT Del (R)(N) STRESS DATA End Diast. Vol.93.0mlAv. Heart Rate65.0bpm End Syst. Vol.33.0mlCO Index BSA3.9L/min Myocardial Ombd942.0gEject. Ibmadvrb47.0% Stress Rates Pk. Fill Rate1.82EDV/secLVtime Pk. Fill 85.51msec Pk. Empty Rate3.00ESV/secLVtime Pk. Fofbg009.32msec 02/16 Pk. Fill1.33EDV/sec Stress Scores Regional WT2.00Summed WT18.00 Regional WM0.00Summed WM11.00 LV Perfusion Scintigraphic images showed small reversible defect involving the basal lateral wall consistent with ischemia. Wall Motion Abnormal septal motion probably from postoperative state. The left ventricular ejection fraction was calculated at 64% LV Perf. Quant 17 Seg. SSS9.00 17 Seg. SRS7.00 17 Seg. SDS6.00 Stress Defect Extent (% LAD)0.00Rest Defect Extent (% LAD)13.10Rev. Defect Extent (% LAD)0.00 Stress Defect Extent (% LCX) 88.80Rest Defect Extent (% LCX)27.50Rev. Defect Extent (% LCX)88.80 Stress Defect Extent (% RCA)0.00Rest Defect Extent (% RCA)0.00Rev. Defect Extent (% RCA)0.00 Stress Defect Extent (% BRITTANY)17.40Rest Defect Extent (% BRITTANY)12.20Rev. Defect Extent (% BRITTANY)17.40 Conclusion 1. Regadenoson cardioisotope stress test showed small amount of basal lateral wall ischemia. 2. Abnormal septal motion probably from postoperative state. The left ventricular ejection fraction was calculated at 64% 3. Low to intermediate risk for cardiac events. Signed by : Jemma Kohler, Electronically Approved : 10/30/2019 13:29:40
== END | disposition home or self-care (01) ==
LOC: NM 08:02
PROVIDERS: ATTEND Internal Medicine Cardiovascular Disease
DX: I08.8 Other rheumatic multiple valve diseases (principal); I25.10 Atherosclerotic heart disease of native coronary artery without angina pectoris; I10 Essential (primary) hypertension; Z95.0 Presence of cardiac pacemaker; Z95.1 Presence of aortocoronary bypass graft
CPT/HCPCS: 78452; 93017; 93306; A9500; J2785

== ENCOUNTER → 2020-02-04 | Outpatient (CLI) | payer MEDICARE ==
[~2020-02-04] MED LIST changes: +IOHEXOL 180 MG/ML 10 ML VIAL. ONE; -REGADENOSON 0.4 MG/5 ML DISP.SYRIN. IV ONE; +methylPREDNISolone ACETATE 40 MG/ML VIAL. ONE; +methylPREDNISolone ACETATE 80 MG/ML VIAL. ONE
--- NOTE | 2020-02-04 12:29 | PDOC ---
Progress Note - Pain Clinic Date of Service: DOS: DATE: 02/04/20 TIME: 12:25 Diagnosis: Dx: Lumbar radiculopathy with lumbar degenerative disc disease History or Present Illness: HPI: 79-year-old male returns follow-up status post initial evaluation and clearance to hold Plavix he had received a clearance is been off of it for 7 days now. Patient reports still significant pain in the low back and left lower extremity as it was previously posterior gluteus posterior thigh posterior calf and occasionally in the arch of the foot on the left side but only occasionally. Patient reports no new motor or sensory deficits no new bowel or bladder incontinence or other complaints still significant pain is described in the low back and left leg is aching and sharp pain also constant with standing better with sitting or laying down generally does not awaken her from sleep at night patient reports his pain is a 9 on scale 10 is worse over the past week 9 on average 8 at its least and is a 9 today. Patient reports no new motor or senso ry deficits no new bowel or bladder incontinence or other complaints. Physical Exam: VS: Blood pressure is 115/73 pulse 63 respirations are 16 temperature 98.2 F weight is 165 pounds PE: PHYSICAL EXAMINATION: GENERAL: The patient is awake, alert, oriented, appropriate, very pleasant demeanor HEENT: Shows normocephalic, atraumatic. Extraocular movements are intact and symmetrical. Oral cavity: Mucous membranes moist and pink. NECK: Shows anterior throat supple without palpable lymphadenopathy noted. Swallow reflex symmetrical. CHEST: Shows normal on inspection. Breath sounds are clear bilaterally. HEART: Shows S1, S2 clear. No murmurs auscultated. ABDOMEN: Soft, nontender, nondistended. No palpable organomegaly is noted. BACK: Shows spine grossly in the midline. Normal-appearing cervical lordotic curvature. There is mildly increased thoracic kyphosis, some flattening of the lumbar lordotic curvature. Lumbar paraspinous muscles show symmetrical on inspection, on palpation shows some moderate tenderness diffusely throughout the upper, middle and lower distribution of the paraspinous muscles, but without specific trigger points, without radiation of pain. The patient has good rotational motion of the lumbar spine, both laterally as well as extension and flexion without significant difficulty. No tenderness over the spinous processes, sacrum or sacroiliac regions. EXTREMITIES: Lower extremities show deep tendon reflexes 2+ in the patellar and tendo calcaneus tendons. Motor exam is 5 on a scale of 5 with right dorsiflexion, extension, quadriceps and hamstring flexion and 5/5 on the left. Peripheral pulses are1+ posterior tibial. No peripheral edema is noted bilaterally. Lower extremities are warm and dry to touch, equal in color and appearance. SKIN: Shows warm and dry, good turgor. No edema. No sores, rashes or bruising throughout. Procedure: Procedure: Options were discussed with the patient. Patient chart was reviewed his current medication regimen updated current review of systems updated today as well. We will proceed with a lumbar epidural steroid injection today with fluoroscopic guidance. Risks were discussed including but not limited to: Bleeding, in fection, possibility of epidural hematoma and subsequent neurological compromise, dural puncture, headaches, spinal cord and/or nerve damage, side effects of steroid medication, and poor results regarding pain control. Patient understands wished to proceed. Patient will return to clinic in approximate 2 weeks for follow-up, was counseled as return appointment activity level and side effects to be aware. Medication Injected: Med Injected: Procedure is lumbar epidural steroid injection under local anesthetic using sterile prep and drape at the L5-S1 level using C-arm fluoroscopic guidance in both AP and lateral views medications injected is 120 mg Depo-Medrol + 10 mL preservative-free normal saline and 2 mL contrast- condition at discharge is stable patient tolerated procedure well had no complications. Condition at Discharge: Condition at Discharge: Condition at discharge stable, patient alert procedure well and had no complications. WILFREDO GOMEZ MD Feb 04, 2020 12:29
== END | disposition home or self-care (01) ==
LOC: PNCL 11:28
PROVIDERS: ATTEND Anesthesiology
DX: M51.16 Intervertebral disc disorders with radiculopathy, lumbar region (principal); I25.10 Atherosclerotic heart disease of native coronary artery without angina pectoris; I10 Essential (primary) hypertension; E78.00 Pure hypercholesterolemia, unspecified; K21.9 Gastro-esophageal reflux disease without esophagitis; M19.90 Unspecified osteoarthritis, unspecified site; E11.9 Type 2 diabetes mellitus without complications; F32.9 Major depressive disorder, single episode, unspecified; Z87.891 Personal history of nicotine dependence; Z79.82 Long term (current) use of aspirin; Z79.84 Long term (current) use of oral hypoglycemic drugs; Z79.899 Other long term (current) drug therapy; Z98.890 Other specified postprocedural states; Z88.5 Allergy status to narcotic agent; Z82.49 Family history of ischemic heart disease and other diseases of the circulatory system
CPT/HCPCS: 62323; J1030; J1040; Q9965

== ENCOUNTER → 2020-02-19 | Outpatient (CLI) | payer MEDICARE ==
[~2020-02-19] MED LIST changes: -ISOS20TA2 PO; +ISOS20TA6 PO
--- NOTE | 2020-02-19 09:26 | PDOC ---
Progress Note - Pain Clinic Date of Service: DOS: DATE: 02/19/20 TIME: 09:21 Diagnosis: Dx: Lumbar radiculopathy with lumbar degenerative disc disease History or Present Illness: HPI: 79-year-old male returns follow-up status post lumbar epidural to injection x1. Patient reports he did very well after the first injection February 04, 2020 but the pain is returned now in the low back and the left lower extremity mostly the posterior gluteus posterior thigh posterior calf but mostly in the hip and back patient reports is a 10 on scale 10 is worse over the past week 10 on average 8 its least is a 10 today patient reports he had used his cane today because his "hip hurts so bad" patient reports has been increasing with walking standing changing positions better with sitting or laying down generally does not awaken from sleep at night sleeps about 6 to 7 hours at a time without much disturbance patient describes pain as aching and shooting stabbing constant with standing and radiating with standing as well as can be unbearable with ambulation. Patient reports no new motor or sensory deficits no bowel or bladder incontinence. Physical Exam: VS: Blood pressure is 117/73 pulse 79 respirations 16 temperature 98.3 F weight is 163 pounds PE: PHYSICAL EXAMINATION: GENERAL: The patient is awake, alert, oriented, appropriate, very pleasant demeanor HEENT: Shows normocephalic, atraumatic. Extraocular movements are intact and symmetrical. Patient wearing eyeglasses. Oral cavity: Mucous membranes moist and pink. NECK: Shows anterior throat supple without palpable lymphadenopathy noted. Swallow reflex symmetrical. CHEST: Shows normal on inspection. Breath sounds are clear bilaterally no rales rhonchi or wheezes. HEART: Shows S1, S2 clear. No murmurs auscultated. ABDOMEN: Soft, nontender, nondistended, flat. No palpable organomegaly is noted. No rebound or guarding demonstrated. BACK: Shows spine grossly in the midline. Normal-appearing cervical lordotic curvature. There is slightly increased thoracic kyphosis, some minor flattening of the lumbar lordotic curvature. Lumbar paraspinous muscles show symmetrical on inspection, on palpation shows some moderate tenderness diffusely throughout the upper, middle and lower distribution of the paraspinous muscles, but without specific trigger points, without radiation of pain. The patient has good rotational motion of the lumbar spine, both laterally as well as extension and flexion without significant difficulty. No tenderness over the spinous processes, sacrum or sacroiliac regions. EXTREMITIES: Lower extremities show deep tendon reflexes 2+ in the patellar and tendo calcaneus tendons. Motor exam is 5 on a scale of 5 with right dorsiflexion, extension, quadriceps and hamstring flexion and 5/5 on the left. Peripheral pulses are 1+ posterior tibial. No peripheral edema is noted bilaterally. Lower extremities are warm and dry to touch, equal in color and appearance. SKIN: Shows warm and dry, good turgor. No edema. No sores, rashes or bruising throughout. Procedure: Procedure: Options were discussed with patient. Patient chart reviews his current medication regimen updated current review of systems updated today as well. We will proceed with a second in the series lumbar epidural steroid injection today with fluoroscopic guidance. Risks were discussed including but not limited to: Bleeding, infection, possibility of epidural hematoma and subsequent neurological compromise, dural puncture, headaches, spinal cord and/or nerve damage, side effects of steroid medication, and poor results regarding pain control. Patient understands wished to proceed. Patient return to clinic in approximate 2 weeks for follow-up was counseled as to return appointment acti vity level and side effects to be aware of. She will restart his Plavix February 20, 2020. Medication Injected: Med Injected: Procedure is lumbar epidural steroid injection under local anesthetic using sterile prep and drape at the L5-S1 level using C-arm fluoroscopic guidance in both AP and lateral views medications injected is 120 mg Depo-Medrol + 10 mL preservative-free normal saline and 2 mL contrast- condition at discharge is stable patient tolerated procedure well had no complications. Condition at Discharge: Condition at Discharge: Condition at discharge stable, patient tolerated procedure well, and had no complications. WILFREDO GOMEZ MD Feb 19, 2020 09:26
== END | disposition home or self-care (01) ==
LOC: PNCL 07:25
PROVIDERS: ATTEND Anesthesiology
DX: M51.16 Intervertebral disc disorders with radiculopathy, lumbar region (principal); I25.10 Atherosclerotic heart disease of native coronary artery without angina pectoris; I10 Essential (primary) hypertension; E78.00 Pure hypercholesterolemia, unspecified; K21.9 Gastro-esophageal reflux disease without esophagitis; M19.90 Unspecified osteoarthritis, unspecified site; F32.9 Major depressive disorder, single episode, unspecified; E11.9 Type 2 diabetes mellitus without complications; Z87.891 Personal history of nicotine dependence; Z79.82 Long term (current) use of aspirin; Z79.84 Long term (current) use of oral hypoglycemic drugs; Z98.890 Other specified postprocedural states; Z72.89 Other problems related to lifestyle; Z88.5 Allergy status to narcotic agent; Z82.49 Family history of ischemic heart disease and other diseases of the circulatory system
CPT/HCPCS: 62323; J1030; J1040; Q9965

== ENCOUNTER → 2020-04-07 | Outpatient (CLI) | payer MEDICARE ==
--- NOTE | 2020-04-07 10:54 | PDOC ---
Progress Note - Pain Clinic Date of Service: DOS: DATE: 04/07/20 TIME: 10:51 Diagnosis: Dx: Lumbar radiculopathy with lumbar degenerative disc disease History or Present Illness: HPI: 79-year-old male returns follow-up status post lumbar epidural steroid injections x2. Patient reports 50% improvement overall with pain returning low back and left lower extremity over the past several weeks. Patient reports initially is doing much better with distance walking doing household activities travel with greater ease and comfort sleeping better patient reports better with sitting or laying down generally is not painful with sitting or laying down but only with standing and with walking is slightly decreased but worse with standing still. Patient reports his pain is a 5 on a scale of 10 at its worst over the past week 3 on average 1 to its least is a 3 today. Patient describes the pain as aching and sharp shooting and radiating dull and aching in the back rating to the left posterior gluteus posterior thigh posterior calf and medial thigh on the left as well as in the calf and foot. Patient reports no new motor or sensory deficits no new bowel or bladder incontinence or other complaints. Physical Exam: VS: Blood pressure is 99/62 pulse 73 respirations 18 temperature 98.5 F height 5 foot 10 inches weight 163 pounds PE: PHYSICAL EXAMINATION: GENERAL: The patient is awake, alert, oriented, appropriate, very pleasant demeanor HEENT: Shows normocephalic, atraumatic. Extraocular movements are intact and symmetrical. NECK: Shows anterior throat supple without palpable lymphadenopathy noted. Swallow reflex symmetrical. CHEST: Shows normal on inspection. Breath sounds are clear bilaterally. HEART: Shows S1, S2 clear. No murmurs auscultated. ABDOMEN: Soft, nontender, nondistended, flat. No palpable organomegaly is noted. BACK: Shows spine grossly in the midline. Normal-appearing cervical lordotic curvature. There is slightly increased thoracic kyphosis, some minor flattening of the lumbar lordotic curvature. Lumbar paraspinous muscles show symmetrical on inspection, on palpation shows some moderate tenderness diffusely throughout the upper, middle and lower distribution of the paraspinous muscles, without specific trigger points, without radiation of pain. The patient has good rotational motion of the lumbar spine, both laterally as well as extension and flexion without significant difficulty. EXTREMITIES: Lower extremities show deep tendon reflexes 2+ in the patellar and tendo calcaneus tendons. Motor exam is 5 on a scale of 5 with right dorsiflexion, extension, quadriceps and hamstring flexion and 5/5 on the left. Peripheral pulses are 1+ posterior tibial. No peripheral edema is noted bilaterally. Lower extremities are warm and dry to touch, equal in color and appearance. SKIN: Shows warm and dry, good turgor. No edema. No sores, rashes or bruising throughout. Procedure: Procedure: Options were discussed with the patient. Patient chart reviewed his current medication regimen updated current review of systems updated today as well. We will proceed with a third in the series lumbar epidural steroid traction today with fluoroscopic guidance. Risks were discussed including but not limited to: Bleeding, infection, possibility of epidural hematoma and subsequent neurological compromise, dural puncture, headaches, spinal cord and/or nerve damage, side effects of steroid medication, and poor results regarding pain control. Patient understands and wished to proceed. We will return to the clinic in approximate 2 weeks for follow-up, was counseled as to return appointm ent activity level and side effects to be aware of. Medication Injected: Med Injected: Procedure is lumbar epidural steroid injection under local anesthetic using sterile prep and drape at the L5-S1 level using C-arm fluoroscopic guidance in both AP and lateral views medications injected is 120 mg Depo-Medrol + 10 mL preservative-free normal saline and 2 mL contrast- condition at discharge is stable patient tolerated procedure well had no complications. Condition at Discharge: Condition at Discharge: Condition at discharge stable, patient tolerated the procedure well and had no complications. WILFREDO GOMEZ MD Apr 07, 2020 10:54
--- NOTE | 2020-04-07 10:55 | PDOC4 ---
PROCEDURE Procedure Patient was consented for lumbar epidural steroid injection. Risks were dis cussed including but not limited to: Bleeding, infection, possibility of epidural hematoma and subsequent neurological compromise, dural puncture, headaches, spinal cord and/or nerve damage, side effects of steroid medication, and poor results regarding pain control. Patient understands and wished to proceed. Procedure is lumbar epidural steroid injection under local anesthetic using sterile prep and drape at the L5-S1 level using C-arm fluoroscopic guidance in both AP and lateral views medications injected is 120 mg Depo-Medrol + 10 mL preservative-free normal saline and 2 mL contrast- condition at discharge is stable patient tolerated procedure well had no complications. WILFREDO GOMEZ MD Apr 07, 2020 10:54
== END | disposition home or self-care (01) ==
LOC: PNCL 09:55
PROVIDERS: ATTEND Anesthesiology
DX: M51.16 Intervertebral disc disorders with radiculopathy, lumbar region (principal); I25.10 Atherosclerotic heart disease of native coronary artery without angina pectoris; I10 Essential (primary) hypertension; E78.00 Pure hypercholesterolemia, unspecified; K21.9 Gastro-esophageal reflux disease without esophagitis; M19.90 Unspecified osteoarthritis, unspecified site; E11.9 Type 2 diabetes mellitus without complications; F32.9 Major depressive disorder, single episode, unspecified; Z79.899 Other long term (current) drug therapy; Z98.890 Other specified postprocedural states; Z79.82 Long term (current) use of aspirin; Z79.84 Long term (current) use of oral hypoglycemic drugs; Z82.49 Family history of ischemic heart disease and other diseases of the circulatory system; Z88.5 Allergy status to narcotic agent
CPT/HCPCS: 62323; J1030; J1040; Q9965

== ENCOUNTER → 2020-08-04 | Outpatient (CLI) | payer MEDICARE ==
--- NOTE | 2020-08-04 10:00 | PDOC4 ---
PROCEDURE Procedure Patient was consented for lumbar epidural steroid injection. Risks were dis cussed including but not limited to: Bleeding, infection, possibility of epidural hematoma and subsequent neurological compromise, dural puncture, headaches, spinal cord and/or nerve damage, side effects of steroid medication, and poor results regarding pain control. Patient understands and wished to proceed. Procedure is lumbar epidural steroid injection under local anesthetic using sterile prep and drape at the L3-4 level using C-arm fluoroscopic guidance in both AP and lateral views medications injected is 120 mg Depo-Medrol +10mL preservative-free normal saline and 2 mL contrast- condition at discharge is stable patient tolerated procedure well had no complications. WILFREDO GOMEZ MD Aug 04, 2020 10:00
--- NOTE | 2020-08-04 10:00 | PDOC ---
Progress Note - Pain Clinic Date of Service: DOS: DATE: 08/04/20 TIME: 09:56 Diagnosis: Dx: Lumbar radiculopathy with lumbar degenerative disc disease and lumbar spondylolisthesis History or Present Illness: HPI: 80-year-old male returns for follow-up status post lumbar epidural steroid injections last seen April 07, 2020. Patient underwent lumbar epidural steroid injections at that time with only about 50% improvement but was short- lived. Patient reports the pain returned down the low back and left leg the medial aspect of the thigh into the lower leg and the medial aspect as well to the ankle patient reports across the low back worse with standing and walking better with sitting or laying down generally does not awaken from sleep at night but has over the past few weeks of every 3-4 hours patient reports if he bends his knees up when he is sleeping he sleeps much better and the pain is reduced patient reports that standing and standing in 1 position and with standing and walking is significantly increasing the pain it decreases it fairly quickly once he sits down or lays down. Patient rates pain a 10 on scale 10 is worse over the past week 9 on average 7 its least is a 9 today patient ports aching sharp tingling radiating the left lower extremity mostly in the medial thigh and into the medial lower leg. Patient reports no symptoms on the right side patient reports it is severe tingling shooting and can be constant with standing. Patient reports no new motor or sensory deficits no new bowel or bladder incontinence. Physical Exam: VS: Blood pressure 122/68 pulse 84 respirations 16 temperature 98 Fahrenheit weight is 159 pounds PE: PHYSICAL EXAMINATION: GENERAL: The patient is awake, alert, oriented, appropriate, very pleasant in demeanor HEENT: Shows normocephalic, atraumatic. Extraocular movements are intact and symmetrical. Patient wearing eyeglasses. Oral cavity: Mucous membranes moist and pink. NECK: Shows anterior throat supple without palpable lymphadenopathy noted. Swallow reflex symmetrical. CHEST: Shows normal on inspection. Breath sounds are clear bilaterally. HEART: Shows S1, S2 clear. No murmurs auscultated. ABDOMEN: Soft, nontender, nondistended. BACK: Shows spine grossly in the midline. Normal-appearing cervical lordotic curvature. There is slightly increased thoracic kyphosis, some minor flattening of the lumbar lordotic curvature. Lumbar paraspinous muscles show symmetrical on inspection, on palpation shows some moderate tenderness diffusely throughout the upper, middle and lower distribution of the paraspinous muscles, but without specific trigger points, without radiation of pain. The patient has good rotational motion of the lumbar spine, both laterally as well as extension and flexion without significant difficulty. No tenderness over the spinous processes, sacrum or sacroiliac regions. EXTREMITIES: Lower extremities show deep tendon reflexes 2+ in the patellar and tendo calcaneus tendons. Motor exam is 5 on a scale of 5 with right gayle siflexion, extension, quadriceps and hamstring flexion and 5/5 on the left. Peripheral pulses are 1+ posterior tibial. No peripheral edema is noted bilaterally. Lower extremities are warm and dry. SKIN: Shows warm and dry, good turgor. No edema. No sores, rashes or bruising throughout. Procedure: Procedure: Options discussed with patient. Patient's old chart was reviewed his his current medication regimen updated current review of systems updated today as well. We will proceed with a lumbar epidural steroid injection today with fluoroscopic guidance at the L3-4 level. Risks were discussed including but not limited to: Bleeding, infection, possibility of epidural hematoma and subsequent neurological compromise, dural puncture, headaches, spinal cord and/or nerve damage, side effects of steroid medication, and poor results regarding pain control. Patient understands and wished to proceed. Patient will return to the clinic in approximate 2 weeks for follow-up, was counseled as return appointment activity level and side effects to be aware of. Medication Injected: Med Injected: Procedure is lumbar epidural steroid injection under local anesthetic using sterile prep and drape at the L3-4 level using C-arm fluoroscopic guidance in both AP and lateral views medications injected is 120 mg Depo-Medrol +10mL preservative-free normal saline and 2 mL contrast- condition at discharge is stable patient tolerated procedure well had no complications. Condition at Discharge: Condition at Discharge: Condition at discharge stable, patient already procedure well and had no complications. WILFREDO GOMEZ MD Aug 04, 2020 10:00
== END | disposition home or self-care (01) ==
LOC: PNCL 08:59
PROVIDERS: ATTEND Anesthesiology
DX: M51.16 Intervertebral disc disorders with radiculopathy, lumbar region (principal); M43.16 Spondylolisthesis, lumbar region; I25.10 Atherosclerotic heart disease of native coronary artery without angina pectoris; K21.9 Gastro-esophageal reflux disease without esophagitis; M19.90 Unspecified osteoarthritis, unspecified site; E11.9 Type 2 diabetes mellitus without complications; F32.9 Major depressive disorder, single episode, unspecified; I25.2 Old myocardial infarction; I11.0 Hypertensive heart disease with heart failure; I50.33 Acute on chronic diastolic (congestive) heart failure; E78.5 Hyperlipidemia, unspecified; Z88.5 Allergy status to narcotic agent; Z79.899 Other long term (current) drug therapy; Z79.84 Long term (current) use of oral hypoglycemic drugs; Z95.5 Presence of coronary angioplasty implant and graft; Z98.890 Other specified postprocedural states; Z95.0 Presence of cardiac pacemaker; Z90.49 Acquired absence of other specified parts of digestive tract; Z87.442 Personal history of urinary calculi; Z87.891 Personal history of nicotine dependence; Z82.49 Family history of ischemic heart disease and other diseases of the circulatory system; Z80.3 Family history of malignant neoplasm of breast; Z80.0 Family history of malignant neoplasm of digestive organs; Z80.51 Family history of malignant neoplasm of kidney; Z80.41 Family history of malignant neoplasm of ovary
CPT/HCPCS: 62323; J1030; J1040; Q9965

== ENCOUNTER → 2020-08-19 | Outpatient (CLI) | payer MEDICARE ==
[~2020-08-19] MED LIST changes: +BUPIVACAINE MPF 0.25% 10 ML VIAL. ONE; -methylPREDNISolone ACETATE 40 MG/ML VIAL. ONE
--- NOTE | 2020-08-19 10:25 | PDOC4 ---
Procedure Note: Procedure Note: Patient was consented for left L3-4 lumbar transforaminal epidural steroid injection. Risks were discussed including but not limited to: Bleeding, infection, possibility of epidural hematoma and subsequent neurological compromise, dural puncture, headaches, spinal cord and/or nerve damage, potential injection of the vertebral arteries at level and permanent ischemic damage, side effects of steroid medication, and poor results regarding pain c ontrol. Patient understands and wished to proceed. Under sterile prep and drape patient was placed in prone position using C-arm fluoroscopic guidance to identify the L3-4 distribution oblique and slightly cephalad angled C arm. The left L3-4 target was identified and using lidocaine for anesthetizing the skin 22-gauge Augie pencil point needle was then used to enter the skin and into the subcutaneous tissues using direct C-arm fluoroscopic guidance to guide the needle into the transforaminal aspect of the left L3-4 vertebrae this was confirmed with lateral views showing the needle tip in the superior aspect of the paravertebral region. Aspiration was noted to be negative, -1.5 cc of contrast was then injected with good spread both medially into the epidural space as well as laterally along the nerve root without uptake and without distribution and uptake on digital subtraction. At this time, a solution containing 2 cc of 0.25% bupivacaine and 80 mg of Depo-Medrol was then injected. Needle was withdrawn and sterile bandage was applied. Patient tolerated procedure well had no immediate complications WILFREDO GOMEZ MD Aug 19, 2020 10:25
--- NOTE | 2020-08-19 10:25 | PDOC ---
Progress Note - Pain Clinic Date of Service: DOS: DATE: 08/19/20 TIME: 10:21 Diagnosis: Dx: Lumbar radiculopathy with lumbar degenerative disc disease History or Present Illness: HPI: 80-year-old male returns for follow-up status post lumbar epidural steroid injection x1. Patient reports about 75% improvement still pain in the left lower extremity however his low back is doing much better but his left leg significantly painful patient reports difficulty when he standing still trying to prepare a meal at a countertop for example standing still is been much more painful with pain rating the left lower extremity posterior low back into the medial thigh medial anterior thigh medial lower leg to the level of the ankle patient reports is a 9 on scale 10 is worse over the past week 6 on average 3 displeasing is a 6 today. Patient reports is tingling sharp constant radiating shooting left lower extremity without loss of motor function but significant fatigability with standing especially standing or walking. Patient reports initially was doing much better with distance walking and standing but the improvement decreased over the about 1 week. Following the injection. Patient reports no new motor or sensory deficits or other complaints at this time. Physical Exam: VS: Blood pressure is 116/45 pulse 63 respirations 18 temperature 98.0 F height 5 feet 9 inches weight 157 pounds PE: PHYSICAL EXAMINATION: GENERAL: The patient is awake, alert, oriented, appropriate, very pleasant in demeanor HEENT: Shows normocephalic, atraumatic. Extraocular movements are intact and symmetrical. Oral cavity: Mucous membranes moist and pink. NECK: Shows anterior throat supple without palpable lymphadenopathy noted. Swallow reflex symmetrical. CHEST: Shows normal on inspection. Breath sounds are clear bilaterally, distant but no rales or rhonchi. HEART: Shows S1, S2 clear. No murmurs auscultated. ABDOMEN: Soft, nontender, nondistended, obese. BACK: Shows spine grossly in the midline. Normal-appearing cervical lordotic curvature. There is increased thoracic kyphosis, some minor flattening of the lumbar lordotic curvature. Lumbar paraspinous muscles show symmetrical on inspection, on palpation shows some moderate tenderness diffusely throughout the upper, middle and lower distribution of the paraspinous muscles, but without specific trigger points, without radiation of pain. The patient has good rotational motion of the lumbar spine, both laterally as well as extension and flexion without significant difficulty. No tenderness over the spinous processes, sacrum or sacroiliac regions. EXTREMITIES: Lower extremities show deep tendon reflexes 2+ in the patellar and tendo calcaneus tendons. Motor exam is 5 on a scale of 5 with right dorsiflexion, extension, quadriceps and hamstring flexion and 5/5 on the left. Peripheral pulses are 1 posterior tibial. No peripheral edema is noted bilaterally. Lower extremities are warm and dry. SKIN: Shows warm and dry, good turgor. No edema. No sores, rashes or bruising throughout. Procedure: Procedure: Options were discussed with the patient. Patient's old chart was reviewed his current medication regimen updated current review of systems updated today as well. We will received with a left L3-4 lumbar transforaminal epidural steroid injection today with fluoroscopic guidance. Risks were discussed including but not limited to: Bleeding, infection, possibility of epidural hematoma and subsequent neurological compromise, dural puncture, headaches, spinal cord and/or nerve damage, potential injection into the vertebral artery at that level and permanent ischemic damage, side effects of steroid medication, and poor results regarding pain control. Patient understands and wished to proceed. Patient will return to the clinic in approximate 2 weeks for follow-up, was counseled as to return appointment activity level and side effects to be aware of. Medication Injected: Med Injected: Under sterile prep and drape patient was placed in prone position using C-arm fluoroscopic guidance to identify the L3-4 distribution oblique and slightly cephalad angled C arm. The left L3-4 target was identified and using lidocaine for anesthetizing the skin 22-gauge Augie pencil point needle was then used to enter the skin and into the subcutaneous tissues using direct C-arm fluoroscopic guidance to guide the needle into the transforaminal aspect of the left L3-4 vertebrae this was confirmed with lateral views showing the needle tip in the superior aspect of the paravertebral region. Aspiration was noted to be negative, -1.5 cc of contrast was then injected with good spread both medially into the epidural space as well as laterally along the nerve root without uptake and without distribution and uptake on digital subtraction. At this time, a solution containing 2 cc of 0.25% bupivacaine and 80 mg of Depo-Medrol was then injected. Needle was withdrawn and sterile bandage was applied. Patient tolerated procedure well had no immediate complications Condition at Discharge: Condition at Discharge: Condition at discharge stable, patient alert procedure well and had no complications. WILFREDO GOMEZ MD Aug 19, 2020 10:24
== END | disposition home or self-care (01) ==
LOC: PNCL 09:23
PROVIDERS: ATTEND Anesthesiology
DX: M51.16 Intervertebral disc disorders with radiculopathy, lumbar region (principal); I10 Essential (primary) hypertension; I25.10 Atherosclerotic heart disease of native coronary artery without angina pectoris; E78.00 Pure hypercholesterolemia, unspecified; E11.9 Type 2 diabetes mellitus without complications; K21.9 Gastro-esophageal reflux disease without esophagitis; M19.90 Unspecified osteoarthritis, unspecified site; F32.9 Major depressive disorder, single episode, unspecified; Z79.82 Long term (current) use of aspirin; Z79.84 Long term (current) use of oral hypoglycemic drugs; Z79.899 Other long term (current) drug therapy; Z87.891 Personal history of nicotine dependence; Z98.890 Other specified postprocedural states; Z88.5 Allergy status to narcotic agent
CPT/HCPCS: 64483; J1040; J3490; Q9965

== ENCOUNTER → 2020-10-29 | Outpatient (CLI) | payer MEDICARE ==
[~2020-10-29] MED LIST changes: -BUPIVACAINE MPF 0.25% 10 ML VIAL. ONE; -IOHEXOL 180 MG/ML 10 ML VIAL. ONE; -methylPREDNISolone ACETATE 80 MG/ML VIAL. ONE
--- NOTE | 2020-10-29 18:51 | RAD ---
MR#: [id number] Date of Study: 10/29/2020 Ordering Physician: JEMMA PARKS, Referring Physician: JEMMA PARKS, Tech: Irina Campbell RDMS, RVT, RTR APPROVED REPORT Patient Location: OUT-PATIENT Laterality:Bilateral Indications Carotid Artery Stenosis Doppler Spectral Velocity Analysis Right Left pCCA 86/9 cm/spCCA 91/16 cm/s mCCA 78/10 cm/smCCA 99/15 cm/s dCCA 88/12 cm/sdCCA 99/22 cm/s ECA 78/14 cm/sECA 68/6 cm/s pICA 69/10 cm/spICA 51/15 cm/s Omar 79/22 cm/smICA 62/17 cm/s dICA 64/21 cm/sdICA 58/18 cm/s Vert. 33/10 cm/sVert. 37/11 cm/s ICA/CCA 1.00ICA/CCA 0.68 Findings Grayscale images of the bilateral carotid vessels demonstrate moderate diffuse atherosclerotic plaque . Spectral waveforms and color Doppler are grossly within normal limits suggestive overall of 0 to less than 50% stenosis based on velocity criteria. Normal ICA to CCA ratios bilaterally. Normal antegrade vertebral velocities Critical Notification Critical Value: No <Conclusion> 1. No significant carotid occlusive disease bilaterally Signed by : Scooby Spangler, Electronically Approved : 10/29/2020 18:50:31
--- NOTE | 2020-10-30 10:13 | CARD ---
MR#: [id number] Date of Study: 10/29/2020 Ordering Physician: JEMMA PARKS, Referring Physician: JEMMA PARKS, Tech: Irina Gracia [facility] APPROVED REPORT EXAM: Two-dimensional and M-mode echocardiogram with Doppler and color Doppler. Other Information Quality : AverageHR: 70bpm Rhythm : Pacemaker INDICATION Cardiac Disease: CAD Surgery/Intervention Pacemaker: Date: 2013 CABG: Date: 1997 Site: [facility] RISK FACTORS Hyperlipidemia Diabetes 2D DIMENSIONS Left Atrium(2D)3.4 (1.6-4.0cm)IVSd1.1 (0.7-1.1cm) Aortic Root(2D)3.6 (2.0-3.7cm)LVDd4.3 (3.9-5.9cm) LVOT Diameter2.1 (1.8-2.4cm)PWd1.0 (0.7-1.1cm) LVDs2.7 (2.5-4.0cm)FS (%) 38.0 % SV57.7 mlLVEF(%)68.4 (>50%) Aortic Valve AoV Peak Alvarado.145.6cm/sAoV VTI23.7cm AO Peak GR.8.5mmHgLVOT Peak Alvarado.91.5cm/s LVOT VTI 17.84cmAO Mean GR.4mmHg ALBERTO (VMAX)1.82yb4ZTP (VTI)2.72cm2 Mitral Valve MV E Rfohqjhg32.9cm/sMV DECEL CANX971ia MV A Hwjxrjsj59.4cm/sMV E Mean Gr.1mmHg MV OKI259cpO/A Ratio0.7 MVA (PHT)1.96cm2 TDI E/Lateral E'6.3E/Medial E'9.0 Pulmonary Valve PV Peak Ggwuojzy312.9cm/sPV Peak Grad.4mmHg Tricuspid Valve TR P. Yktdlgqt394xe/sRAP LHYWKGLE2exDr TR Peak Gr.81bhZePZFK16pfPf Pulmonary Vein S1 Bqoflqlc16.3cm/sD2 Dujsotpv50.4cm/s PVa [id number] LEFT VENTRICLE The left ventricle is normal size. There is borderline to mild concentric left ventricular hypertroph y. The left ventricular systolic function is low normal. EF 50%. Wall motion consistent with conducti on abnormality and prior CABG. Otherwise, mild global hypokinesis. Transmitral Doppler flow pattern i s Grade I-abnormal relaxation pattern. RIGHT VENTRICLE The right ventricle is normal size. There is normal right ventricular wall thickness. The right ventr icular systolic function is normal. There is a pacemaker lead in the right ventricle. ATRIA The left atrium is mildly dilated. The right atrium is mildly dilated. Interatrial septum is not well visualized but grossly appears intact. AORTIC VALVE The aortic valve is thickened but opens well. Doppler and Color Flow revealed trace aortic regurgitat ion. There is no significant aortic valvular stenosis. Calculated aortic valve area is 2.49 cm2 with maximum pressure gradient of 10 mmHg and mean pressure gradient of 5 mmHg. MITRAL VALVE The mitral valve is grossly normal in structure and function. There is no evidence of mitral valve pr olapse. There is no mitral valve stenosis. Doppler and Color-flow revealed trace mitral regurgitation . TRICUSPID VALVE The tricuspid valve is grossly normal in structure and function. Doppler and Color Flow revealed trac e tricuspid regurgitation with an estimated PAP of 34 mmHg. There is no tricuspid valve stenosis. PULMONIC VALVE Doppler and Color Flow revealed trace to mild pulmonic valvular regurgitation. There is no pulmonic v alvular stenosis. GREAT VESSELS The aortic root is normal in size. The ascending aorta is normal in size. The IVC is normal in size a nd collapses >50% with inspiration. PERICARDIAL EFFUSION There is no evidence of significant pericardial effusion. Critical Notification Critical Value: No <Conclusion> The left ventricular systolic function is low normal. EF 50%. Wall motion consistent with conduction abnormality and prior CABG. Otherwise, mild global hypokinesis . There is a pacemaker lead in the right ventricle. Technically difficult study. Signed by : Scooby Spangler, Electronically Approved : 10/30/2020 10:13:13
== END ==
LOC: ECHO 12:42
PROVIDERS: ATTEND Internal Medicine Cardiovascular Disease
DX: I65.23 Occlusion and stenosis of bilateral carotid arteries (principal); I37.1 Nonrheumatic pulmonary valve insufficiency; I51.7 Cardiomegaly; I25.10 Atherosclerotic heart disease of native coronary artery without angina pectoris
CPT/HCPCS: 93306; 93880

== ENCOUNTER → 2021-05-06 | Outpatient (CLI) | payer MEDICARE ==
[~2021-05-06] MED LIST changes: -EMPA10TA PO; +EMPA10TA3 PO; +REGADENOSON 0.4 MG/5 ML DISP.SYRIN. IV ONE
--- NOTE | 2021-05-06 18:13 | RAD ---
MR#: [id number] Date of Study: 05/06/2021 Ordering Physician: JEMMA PARKS, Referring Physician: PAO RUGGIERO Tech: JULIÁN Aquino, ARRT (R) (N) APPROVED REPORT Test Type: Pharmacological Stress Nurse/Tech: Trupti Black RN Test Indications: CAD Cardiac History: CAD, CHF, [place], PPM, HTN, CABG x 9 1997, DM Medications: See Electronic Medical Record Medical History: See Electronic Medical Record Resting ECG: Pacemaker spikes Resting Heart Rate: 63 bpm Resting Blood Pressure: 105/51mmHg Pretest Chest Pain: None Nurse/Tech Notes Lungs CTA, S1S2 Consent: The procedure was explained to the patient in lay terms. Informed consent was witnessed. Shin eout was entered into [employer]. History and Stress Test performed by RT Lisa (R) (N) Pharm. Details Pharmacologic stress testing was performed using 0.4mg per 5ml of regadenoson given intravenously ove r 7-10 seconds. Stress Symptoms No chest pain or symptoms. POST EXERCISE Reason for Termination: Infusion complete Max HR: 91 bpm Max Blood Pressure: 103/56mmHg Blood Pressure response to exercise: Normal blood pressure response during stress. Heart Rate response to exercise: normal response Chest Pain: No. Arrhythmia: No. ST Change: No. INTERPRETATION Stress EKG Conclusion: The resting EKG is AV paced. The patient remains in a V paced rhythm throughout the study. Imaging Protocol IMAGE PROTOCOL: Rest Tc-99m/stress Tc-99m 1 day Rest: Stress: Viability: Radiopharm.Tc99m EaoocrzboEa52k Sestamibi Dose9.5mCi 32.2mCi Img Date 05/06/2021 05/06/2021 Inj-Img Enic84xxf. 60min. Rest Admin Site:IV - Left AntecubitalAdministrator:RT Lisa (R)(N) Stress Admin Site: IV - Left AntecubitalAdministrator: RT Barrington MathisR)(N) STRESS DATA End Diast. Vol.111.0mlAv. Heart Rate67.0bpm End Syst. Vol.44.0mlCO Index BSA4.5L/min Myocardial Yjag764.0gEject. Lusuqfzz98.0% Stress Rates Pk. Fill Rate2.06EDV/secLVtime Pk. Fill 273.13msec Pk. Empty Rate2.83ESV/secLVtime Pk. Xcrpx668.03msec 1/3 Pk. Fill0.62EDV/sec Stress Scores Regional WT2.00Summed WT14.00 Regional WM0.00Summed WM13.00 LV Perfusion The stress scans show a mild lateral wall defect. The rest scans show a mild lateral wall defect. Nuclear imaging shows a lateral wall defect as above which is largely fixed but some rosa elena-infarct isc hemia cannot be excluded. Wall Motion Left ventricular ejection fraction is 54%. LV Perf. Quant 17 Seg. SSS7.00 17 Seg. SRS8.00 17 Seg. SDS4.00 Stress Defect Extent (% LAD)0.00Rest Defect Extent (% LAD)21.90Rev. Defect Extent (% LAD)0.00 Stress Defect Extent (% LCX) 70.00Rest Defect Extent (% LCX)20.00Rev. Defect Extent (% LCX)70.00 Stress Defect Extent (% RCA)0.00Rest Defect Extent (% RCA)0.00Rev. Defect Extent (% RCA)0.00 Stress Defect Extent (% BRITTANY)13.30Rest Defect Extent (% BRITTANY)14.10Rev. Defect Extent (% BRITTANY)13.30 Conclusion 1. Paced rhythm throughout the study. 2. Nuclear imaging shows a largely fixed lateral wall defect most consistent with a possible infarct with mild rosa elena-infarct ischemia. 3. LV ejection fraction of 54%. 4. Moderate to moderately low risk Lexiscan nuclear stress test. Signed by : Zachary Zabala MD Electronically Approved : 05/06/2021 18:13:09
== END ==
LOC: NM 08:37
PROVIDERS: ATTEND Internal Medicine Cardiovascular Disease
DX: I25.10 Atherosclerotic heart disease of native coronary artery without angina pectoris (principal)
CPT/HCPCS: 78452; 93017; A9500; J2785